=== PATIENT | male | born 1960 | race Caucasian/White ===

== ENCOUNTER 2018-07-21 21:11 | Emergency (ER) | payer OTHER ==
[~2018-07-21] VITALS: Ht 175.3 cm; Wt 72.6 kg
[2018-07-21 21:12] VITALS: BP 147/75
--- NOTE | 2018-07-21 21:16 | NUR ---
PT LISA ALS. TAKEN TO ER BED 9
--- NOTE | 2018-07-21 21:16 | NUR ---
57/M BIBA FROM HOME, S/P TONIC-CLONIC SEIZURE TONIGHT (3X, APPROXIMATELY 45s-1MIN EACH), PT WAS WATCHING TV AT HOME ON THE COUCH. NO HEAD TRAUMA, NO TONGUE TRAUMA. PT DENIES FEVER/CHILLS, CP, SOB, N/V. PT ARRIVES TO ED, AOX4, GCS 15, PERRLA 2MM, SKIN NORMAL WARM AND DRY, RR EVEN AND UNLABORED, LUNG SOUNDS CLEAR BL. HR EVEN AND REGULAR. ALL PERIPHERAL STRENGTH +2 HX EPILEPSY RX MIKE BARROSO
[2018-07-21] MEDS ORDERED: NACL 0.9% 1,000 ML IV ONE (21:20)
[2018-07-21 21:42] LABS: BASOPHILS % (AUTO) 0.3 % (0.0-2.0); EOSINOPHILS # (AUTO) 0.3 K/uL (0-0.4); EOSINOPHILS % (AUTO) 2.8 % (0.0-4.0); HEMATOCRIT 41.9 % (36-52); HEMOGLOBIN 14.1 g/dL (12.0-18.0); LYMPHOCYTES # (AUTO) 2.7 K/uL (2.0-11.5); LYMPHOCYTES % (AUTO) 22.7 % (20.5-51.1); MEAN CORPUSCULAR HEMOGLOBIN 31 pg (27-31); MEAN CORPUSCULAR HGB CONC 34 g/dL (33-37); MEAN CORPUSCULAR VOLUME 93.4 fL (80-94); MONOCYTES # (AUTO) 1.2 K/uL (0.8-1.0); MONOCYTES % (AUTO) 9.9 % (1.7-9.3); NEUTROPHILS # (AUTO) 7.6 K/uL (1.8-7.7); NEUTROPHILS % (AUTO) 64.3 % (42.2-75.2); PLATELET COUNT (AUTO) 225 K/uL (140-450); RED BLOOD CELL COUNT(AUTO) 4.48 MIL/uL (4.20-6.10); RED CELL DISTRIBUTION WIDTH 14.1 % (11.6-13.7); WHITE BLOOD COUNT (AUTO) 11.8 K/uL (4.8-10.8)
--- NOTE | 2018-07-21 21:46 | NUR ---
Dr. Frank examining patient.
--- NOTE | 2018-07-21 22:07 | NUR ---
PT LAYING IN BED, RR EVEN AND UNLABORED. VSS, DENIES ANY PAIN. ALL NEEDS MET AT THIS TIME.
[2018-07-21 22:09] LABS: BARBITURATE, URINE NEG. ng/ml (NEG <=200); BENZODIAZEPINE, URINE NEG. ng/mL (NEG <=200); CANNABINOID, URINE NEG. ng/mL (NEG <=50); COCAINE, URINE NEG. ng/mL (NEG <=300); OPIATE, URINE NEG. ng/mL (NEG <=2000); PHENCYCLIDINE SCREEN,URINE NEG. ng/mL (NEG <=25)
[2018-07-21 22:09] LABS: ALBUMIN 3.2 g/dL (3.4-5.0); ANION GAP 14.2 (8-16); ASPARTATE AMINOTRANSFERASE 13 U/L (15-37); CARBON DIOXIDE 23.5 mmol/L (21-32); CHLORIDE 104 mmol/L (98-107); CREATININE 1.1 mg/dL (0.7-1.3); GFR ARICAN-AMERICAN 88 mL/min (>90); GLUCOSE 144 mg/dL (74-106); POTASSIUM 3.7 mmol/L (3.5-5.1); SALICYLATE 4.5 mg/dL (2.8-20.0); SODIUM SERUM 138 mmol/L (136-145); TOTAL BILIRUBIN 0.2 mg/dL (0.0-1.0); UREA NITROGEN, BLOOD 7 mg/dL (7-18)
[2018-07-21 22:11] LABS: ACETAMINOPHEN < 0.5 ug/ml (10-30); PHENYTOIN (DILANTIN) 5.6 ug/ml (10.0-20.0)
[2018-07-21] MEDS ORDERED: levETIRAcetam 1,000 MG in NACL 0.9% 100 ML IV ONE (22:20)
[2018-07-21] MEDS ORDERED: PHENYTOIN 100 MG/2 ML VIAL IVP ONE (22:20)
[2018-07-21] MEDS ORDERED: levETIRAcetam 100 MG/ML VIAL IV ONE (22:42)
--- NOTE | 2018-07-21 23:13 | NUR ---
PT LAYING IN BED, RR EVEN AND UNLABORED. VSS, DENIES ANY PAIN. ALL NEEDS MET AT THIS TIME.
[2018-07-21 23:38] VITALS: BP 122/72
--- NOTE | 2018-07-21 23:38 | NUR ---
Patient discharged with v/s stable. Written and verbal after care instructions given and explained. Patient alert, oriented and verbalized understanding of instructions. Ambulatory with steady gait. All questions addressed prior to discharge. ID band removed. Patient advised to follow up with PMD. Rx of MUCINEX given. Patient educated on indication of medication including possible reaction and side effects. Opportunity to ask questions provided and answered.
== END 2018-07-21 23:38 | disposition home or self-care (01) ==
LOC: MED 21:11
DX: R56.9 Unspecified convulsions (principal); F17.210 Nicotine dependence, cigarettes, uncomplicated
CPT/HCPCS: 36415; 80053; 80173; 80185; 80305; 85025; 93005; 96365; 96375; 99284; G0480; G0482; J1165; J1953; 96374